=== PATIENT | male | born 1990 | race Caucasian/White ===

== ENCOUNTER → 2020-01-22 10:16 | Outpatient (CLI) | payer BC | END | disposition home or self-care (01) | LOC: D.RAD 10:16 | PROVIDERS: ATTEND Nurse Practitioner Family | DX: R06.02 Shortness of breath (principal) ==

== ENCOUNTER 2020-04-04 17:33 | Emergency (ER) | payer BC ==
[~2020-04-04] VITALS: Ht 182.9 cm; Wt 104.5 kg
[2020-04-04 17:38] VITALS: Ht 182.9 cm; Wt 104.5 kg
[2020-04-04] MEDS ORDERED: PROPRANOLOL HCL20 MG PO (17:40)
[2020-04-04] MEDS ORDERED: ZOLOFT100 MG PO (17:40)
[2020-04-04] MEDS ORDERED: ABILIFY10 MG PO (17:40)
[2020-04-04 18:53] LABS: BASOPHILS 0.2 % (0-2); EOSINOPHILS 1.1 % (0-7); HEMATOCRIT 48.5 % (42.0-54.0); HEMOGLOBIN 16.5 g/dL (13.5-17.5); IMMATURE GRANULOCYTES 0.2 % (0-5); MCH 31.4 pg (26.0-34.0); MCV 92.4 fL (80.0-100.0); MONOCYTES 4.6 % (2-11); NEUTROPHILS 64.9 % (40-80); PLATELET COUNT 282 10x3/uL (130-400); RBC 5.25 10x6/uL (4.20-6.10); RDW 12.9 % (11.5-14.5); WBC 9.1 10x3/uL (4.8-10.8)
[2020-04-04 19:01] LABS: CALC OSMOLALITY 275 mosm/kg (275-300); CARBON DIOXIDE 25.3 mmol/L (21.0-32.0); CHLORIDE - SERUM 105 mmol/L (98-107); CREATININE - SERUM 0.9 mg/dL (0.6-1.3); GLUCOSE 107 mg/dL (74-106); POTASSIUM - SERUM 3.6 mmol/L (3.5-5.1); SODIUM 139 mmol/L (136-145); UREA NITROGEN 7 mg/dL (7-18); eGFR NON AFRICAN AMERICAN > 90 mL/min (90-120)
[2020-04-04 19:04] LABS: INR 0.9 (0.85-1.17); PROTIME 12.1 SECONDS (11.6-15.0)
[2020-04-04 19:05] LABS: APTT 25.6 SECONDS (22.8-39.4)
[2020-04-04 19:07] LABS: ALBUMIN 4.1 g/dL (3.4-5.0); ALKALINE PHOSPHATASE 71 U/L (30-120); ALT (SGPT) 34 U/L (10-68); BILIRUBIN - TOTAL 0.34 mg/dL (0.2-1.3); PROTEIN - SERUM 7.7 g/dL (6.4-8.2)
[2020-04-04] MEDS ORDERED: AUGMENTIN 875-11 TAB PO (19:07)
[2020-04-04] MEDS ORDERED: HYDROCODON-ACE1 EA10 PO (19:07)
[2020-04-04 20:45] VITALS: BP 118/76
== END 2020-04-04 20:46 | disposition home or self-care (01) ==
LOC: D.ER 17:33
PROVIDERS: Emergency Medicine
DX: S68.115A Complete traumatic metacarpophalangeal amputation of left ring finger, initial encounter (principal); W23.0XXA Caught, crushed, jammed, or pinched between moving objects, initial encounter; Y93.9 Activity, unspecified; Y92.9 Unspecified place or not applicable

== ENCOUNTER 2020-04-08 09:53 | Day surgery (SDC) | payer BC ==
[~2020-04-08] VITALS: Ht 182.9 cm; Wt 104.3 kg
[~2020-04-08 09:53] MED LIST: ABILIFY10 MG PO; AUGMENTIN 875-11 TAB PO; HYDROCODON-ACE1 EA10 PO; PROPRANOLOL HCL20 MG PO; ZOLOFT100 MG PO
[2020-04-08 10:35] LABS: HEMATOCRIT 47.5 % (42.0-54.0); HEMOGLOBIN 15.7 g/dL (13.5-17.5); MCH 31.1 pg (26.0-34.0); MCHC 33.1 g/dL (31.0-37.0); MCV 94.1 fL (80.0-100.0); MEAN PLATELET VOLUME 9.2 fL (7.4-10.4); RBC 5.05 10x6/uL (4.20-6.10); RDW 12.8 % (11.5-14.5); WBC 6.7 10x3/uL (4.8-10.8)
[2020-04-08] MEDS ORDERED: HYDROCODON-ACE1 EA10 PO (11:21)
[2020-04-08] MEDS ORDERED: AMOXICILLIN875 MG PO (11:22)
[2020-04-08 11:23] VITALS: BP 100/61; Ht 182.9 cm; Wt 104.3 kg
--- NOTE | 2020-04-08 12:54 | NUR ---
DR AMADOR NOTIFIED AND REVIEWED PT'S BEHAVIOR AND ASSESSMENT. PT IS A LOW RISK. RESOURCES GIVEN AND HE VERBALIZES UNDERSTANDING.
--- NOTE | 2020-04-10 14:40 | OP ---
PATIENT NAME: HECTOR BLANCO MEDICAL RECORD: [id number] :90 LOCATION:[facility] ADMISSION DATE: SURGEON: JAXSON DINH MD DATE OF OPERATION: 04/08/2020 PREOPERATIVE DIAGNOSIS: Crush injury, left ring finger. POSTOPERATIVE DIAGNOSIS: Crush injury, left ring finger. PROCEDURE PERFORMED: Partial amputation, left ring finger at the DIP joint. INDICATIONS FOR THE PROCEDURE: Mr. Blanco is a 30-year-old male who sustained a crush injury to the left ring finger this past Monday. His finger was caught between a boat and the dock as they were pulling and stripped the tissues off the tip of the finger. He was seen in the Emergency Department where the wound was debrided and closed, and he is referred to orthopedics for evaluation. On evaluation, the distal phalanx was noted to be protruding through the wound bed and we now talked to him about these findings and the need for partial amputation. He is agreeable to this. Risks, benefits and alternatives of surgery were discussed with the patient and consent was obtained. Arrangements were made for him to come to the operating room today. DESCRIPTION OF PROCEDURE: The patient was met in the holding area where his identity and confirmation of procedure was performed. The left upper extremity was marked. He was taken to the operating room where he was placed supine on the operating table and anesthesia was administered. A tourniquet was applied to the left arm. The left arm was prepped and draped in a sterile fashion. The patient received preoperative antibiotics and timeout was performed before initiating the case. On initiation of the case, the arm was exsanguinated and the tourniquet was raised. Total tourniquet time was 19 minutes. The distal phalanx was noted to be protruding through the wound. The distal phalanx was therefore skeletonized and removed at the DIP joint. The FDP tendon was trimmed back proximally. The neurovascular bundle was identified both radial and ulnar and the nerves were transected proximally. Bipolar cautery was used to cauterize the artery. The condyles and cartilage at the tip of the middle phalanx was debrided with the rongeur. At this point, we had enough good tissue that we were able to perform a closure. The wound was irrigated thoroughly with saline. The wound was then closed with a 4-0 Prolene suture. There was some excess tissue along the ulnar portion of the wound that was transected to allow for some shaping of the digit and we were pleased with our final results. A digital block was performed with 0.5% plain Marcaine. Sterile dressing was applied. The patient was turned back over to anesthesia. He is awakened, extubated, and taken to recovery room in stable condition. POSTOPERATIVE PLAN: The patient is going to be returning home with his family today. Needs to keep the hand elevated, may ice it as needed. He is going to continue oral antibiotics as prescribed per the Emergency Department. We will see him back in clinic in 2 weeks to evaluate his progress. ANESTHESIA: General. COMPLICATIONS: None. ESTIMATED BLOOD LOSS: 5 mL. OPERATIVE REPORT [id number] HECTOR BLANCO TRANSINT:[id number] Voice Confirmation ID: [id number] DOCUMENT ID: [id number] JAXSON DINH MD at 1440 CC: [id number] DICTATION DATE: 04/08/20 1447 [facility]: 04/08/20 1605 [facility] 04/08/20 [id number] [place] [address]
== END 2020-04-08 16:45 | disposition home or self-care (01) ==
LOC: D.OPS 09:53 → D.PAN 12:00 → D.OPS 16:45
PROVIDERS: Anesthesiology; ATTEND Orthopaedic Surgery
DX: S67.195A Crushing injury of left ring finger, initial encounter (principal); X58.XXXA Exposure to other specified factors, initial encounter; J45.909 Unspecified asthma, uncomplicated; Z72.0 Tobacco use